=== PATIENT | female | born 1965 | race Caucasian/White ===

== ENCOUNTER 2024-08-24 16:59 | Emergency (ER) | payer OTHER ==
[2024-08-24] MEDS ORDERED: IBUPROFEN 600 MG TABLET (FP) PO ONE (17:22)
[2024-08-24] MEDS: IBUPROFEN 600 MG TABLET (FP) PO ONE (17:22)
[2024-08-24 17:42] VITALS: BP 160/95; PULSE 78; RESP 16; BMI 24.3
== END 2024-08-24 18:56 | disposition home or self-care (01) ==
LOC: FER 16:59
DX: S52.591A Other fractures of lower end of right radius, initial encounter for closed fracture (principal); W01.0XXA Fall on same level from slipping, tripping and stumbling without subsequent striking against object, initial encounter; Y92.009 Unspecified place in unspecified non-institutional (private) residence as the place of occurrence of the external cause
CPT/HCPCS: 73110-TC-RT-FY; 73130-TC-RT-FY; 99283-25